=== PATIENT | male | born 1985 | race Caucasian/White ===

== ENCOUNTER 2019-11-15 13:55 | Outpatient (CLI) | payer OTHER ==
[2019-11-15] MEDS ORDERED: GADOBUTROL 10 MMOL/10 ML VIAL ONE (14:03)
== END 2019-11-15 13:56 | disposition home or self-care (01) ==
LOC: DI 13:55
PROVIDERS: ATTEND Orthopaedic Surgery
DX: Z53.9 Procedure and treatment not carried out, unspecified reason (principal)

== ENCOUNTER 2019-11-29 16:39 | Outpatient (CLI) | payer OTHER ==
[2019-11-29] MEDS ORDERED: GADOBUTROL 10 MMOL/10 ML VIAL ONE (16:50)
[2019-11-29] MEDS ORDERED: GADOBUTROL 10 MMOL/10 ML VIAL IVP ONE (17:33)
--- NOTE | 2019-11-30 10:28 | MRI Report ---
Reason: LT MASS AND LUMP, SWELLING Procedure Date: 11/29/2019 Accession Number: [id number] / [id number] Procedure: MRI - Finger(s) LT W/WO CPT Code: Final Report FULL RESULT: EXAM: LEFT HAND FIFTH DIGIT MRI WITHOUT AND WITH CONTRAST EXAM DATE: 11/29/2019 04:59 PM. CLINICAL HISTORY: Fifth finger mass for 9 months. COMPARISON: None. TECHNIQUE: Multiplanar, multisequence T1-weighted and fluid-sensitive sequences of the finger before and after administration of intravenous contrast. IV contrast: 9 mL Gadavist. Other: None. FINDINGS: Bones: No fractures or subluxations. No marrow edema or abnormal enhancement. No bone lesions. Cartilage: The articular cartilage is unremarkable. Ligaments: The radial and ulnar collateral ligaments are intact. Tendons: The flexor and extensor tendons are unremarkable. The visualized pulleys are intact. Musculature: No edema or fatty atrophy. Other: No joint effusions or capsular rupture. At the volar portion of the fifth digit at the level of the proximal interphalangeal joints towards the ulnar side, there is an oval-shaped structure within the subcutaneous fat that measures 0.4 x 0.3 x 0.6 cm. It is T1 hypointense. It has mixed signal intensity on T2-weighted imaging. There is minimal to no enhancement within the structure. The surrounding subcutaneous tissues are edematous and enhance. IMPRESSION: 6 mm mass with only mild T2 hyperintensity and minimal to no enhancement of the surrounding inflammatory reaction in the soft tissues. The differential diagnosis includes a remnant of a hematoma, fat necrosis, or a fibrous soft tissue mass. If this causes pain, biopsy could be considered for further evaluation. RADIA
== END 2019-11-29 16:40 | disposition home or self-care (01) ==
LOC: DI 16:39
PROVIDERS: ATTEND Orthopaedic Surgery
DX: R22.32 Localized swelling, mass and lump, left upper limb (principal)
CPT/HCPCS: 73220; A9585

== ENCOUNTER 2019-12-22 11:38 | Day surgery (SDC) | payer OTHER ==
[~2019-12-22 11:38] MED LIST: BUPIVACAINE 0.25% PF 30 ML VIAL ONE; CEFAZOLIN SODIUM IN 0.9 % NACL 2 GM/100 ML BAG IV ONE
[2019-12-22] MEDS ORDERED: fentaNYL 100 MCG/2 ML VIAL IVP ONE (11:39)
[2019-12-22] MEDS ORDERED: LIDOCAINE-MPF 2% 5 ML VIAL IM ONE (11:39)
[2019-12-22] MEDS ORDERED: MIDAZOLAM 2 MG/2 ML VIAL IVP ONE (11:39)
[2019-12-22] MEDS ORDERED: PROPOFOL 200 MG/20 ML VIAL IVP ONE (11:39)
--- NOTE | 2019-12-22 11:45 | ANESTHESIA ---
Pre-Anesthesia VS, & Labs - Diagnosis left small finger mass excision - Procedure left small finger excisional biopsy Height 6 ft Weight (kg) 97.52 kg - NPO >8 hours Home Medications and Allergies Home Medications: Ambulatory Orders No Known Home Medications 12/19/19 No Known Home Medications 12/19/19 Allergies/Adverse Reactions: Allergies Allergy/AdvReac Type Severity Reaction Status Date / Time No Known Drug Allergies Allergy Verified 12/19/19 15:53 Anes History & Medical History - Anesthetic History Anesthesia Complications: reports: No previous complications - Medical History Cardiovascular: reports: None Pulmonary: reports: None Gastrointestinal: reports: None Urinary: reports: None Musculoskeletal: reports: Other Skin: reports: None - Surgical History Orthopedic: Other Exam General: Alert Dental: WNL Mouth Opening: Greater than 4 Fingerbreadths Neck Mobility: Normal Mallampati classification: I Respiratory: Lungs clear Cardiovascular: Regular rate Plan Anesthesia Type: General Consent for Procedure(s) Verified and Reviewed: Yes Code Status: Attempt Resuscitation ASA classification: 1-Healthy patient Is this case an emergency?: No
[2019-12-22] MEDS ORDERED: LACTATED RINGERS 1,000 ML IV ONE (12:04)
[2019-12-22] MEDS ORDERED: BUPIVACAINE 0.25% PF 30 ML VIAL SUBQ ONE ×2 (12:32)
[2019-12-22] MEDS ORDERED: ONDANSETRON 4 MG/2 ML VIAL IVP PRN (13:34)
[2019-12-22] MEDS ORDERED: HYDROcod/ACETAM 5/325 MG TABLET PO PRN (13:38)
--- NOTE | 2019-12-22 14:00 | OPERATIVE REPORT ---
Operative Report - General Procedure Date: 12/22/19 Planned Procedure: Left small finger mass excisional biopsy Pre-Op Diagnosis: Left small finger mass Procedure Performed: Left small finger mass excisional biopsy Post Op Diagnosis: Left small finger mass - Procedure Note Primary Surgeon: OSWALD ZAMBRANO Anesthesia Provider: Immanuel Hu Anesthesia Technique: General LMA Pathology: Culture Swab sent for Aerobic/Anaerobic Tissue sent for Aerobic/AFB/Fungal Culture Tissue sent for permanent pathology Estimated Blood Loss (mL): 5 - Other Other Information/Narrative: Date of Procedure: 22 Dec 2019 Planned Procedure: Left small finger mass excisional biopsy Pre-op diagnosis: Left small finger mass Procedure performed: Left small finger mass excisional biopsy Post-op diagnosis: Left small finger mass Primary Surgeon: OSWALD ZAMBRANO Secondary Surgeon: None Anesthesia: General LMA EBL: 5 ml Tourniquet: 36 minutes, left upper arm at 250mmHg. Specimen(s) Information: Culture swab sent for aerobic and anaerobic culture, tissue sent for aerobic acid-fast and fungal culture, tissue sent for permanent pathology Complication(s): None Condition: Stable to recovery Indications for Surgery: The patient is a 34-year-old right hand dominant male with a 9 month history of a slowly enlarging left small finger mass. He does not recall inciting injury. Exam demonstrated a small approximately 4 mm x 4 mm subcutaneous mass overl moris the volar aspect/ulnar side of the left small finger proximal phalanx, near the metacarpophalangeal joint. There was a negative Tinel at the mass. Distal neurovascular exam was normal. The patient denied history of prior similar masses. Xrays were normal. MRI demonstrated a T1 hypointense well- circumscribed lesion, with some internal enhancement following administration of gadolinium. The mass was somewhat isointense to the surrounding subcutaneous tissues on proton dense imaging, with some internal areas of increased T2 signal. MRI did not provide a definitive diagnosis. Due to the fact that I could not positively identify the mass based on imaging, and that it was slowly enlarging, I recommended excisional biopsy of the mass for tissue diagnosis. Risks benefits and alternatives to this were discussed. Risks of surgery were discussed to include bleeding, infection, postoperative stiffness, mass recurrence, damage to nerves (including the possibility that this mass was arising from a digital nerves, and that excision of the mass may result in nerve injury or segmental resection), blood vessels including the digital artery which based on cross-sectional imaging appeared to be in close association with the mass, tendons, ligaments, bone and cartilage and anesthesia complications to include medication side effects and allergic reactions and even . After a long discussion, they wished to proceed. Findings: Solid mass approximately 3 mm in diameter, and approximately 6 mm proximal to distal in length. It appeared that it was arising from the fascia of the finger, and tracked back proximally into the palm towards the center of the MCPJ with a very narrow stalk. Descriptions of Procedure: The patient was met in the Preoperative Holding Area, at which time preoperative paperwork was confirmed. The left small finger was signed. The patient was then brought to Main Operating Room, placed supine on the Operating Room table, at which time pre procedure timeout was conducted to confirm correct patient, correct extremity and correct procedure and also to confirm presence and sterility of all required equipment and to confirm that antibiotics were being administered. After this was confirmed, general anesthesia was induced. The operative extremity was then prepped and draped over a hand table in the normal sterile fashion after a well-padded tourniquet was placed on the proximal arm. A final timeout was conducted to confirm the correct patient, correct extremity and correct procedure and to confirm that antibiotics had been administered within 30 minutes of incision time. The operative extremity was then gravity exsanguinated for 2 minutes and tourniquet inflated to 250mmHg. A curvilinear incision was made over the mass with a #15 blade through the skin. Dissection was further carried out with tenotomy scissors and retractors until the mass was visualized. As discussed above, the mass appeared to arise/was in continuity with the fascia of the finger, potentially Bradley's ligament. The mass was carefully dissected, removing all soft tissue attachments surrounding the mass. The distal end of the mass was sharply divided from the fascia, and then the proximal extent was circumferentially freed around what appeared to be a stalk and transected close to the level of the MCPJ joint crease. The mass was sectioned on the back tab le, with the larger portion of the mass sent for permanent pathology, and a small section of the mass sent for appropriate cultures. The cut at the cut internal structure of the mass appeared white and fairly homogenous, and was solid. Culture swabs were taken from the wound bed. The small piece of the mass for culture was passed off the back table in a sterile cup, and the larger piece of the mass was then passed off the back table in a sterile specimen cup fixed in formalin. The wound was explored, and the ulnar digital neurovascular bundle was visualized. The wound was then copiously irrigated. The tourniquet was let down. Pressure was held on the wound for approximately 5 minutes. The wound was then again explored and bleeding points were cauterized using bipolar electrocautery. Pressure was again held on the wound, and hemostasis was ensured the wound was irrigated 1 last time, and then closure began using 3-0 nylon in an interrupted horizontal mattress fashion. 7 mL of quarter percent plain Marcaine were injected in the palm at the level of the A1 alisson for postoperative pain control. The wound was dressed with xeroform, plain 4x4 gauze, fluffs, and webril followed by a gently compressive Matti bandage. The patient was then awakened from general anesthesia without complication, brought to the Post Anesthesia Care for further recovery. Immediate sensory exam the OR, prior to bupivacaine set-up confirmed sensation to the ulnar tip of the small finger. Postoperative Plan: 1. The patient will be discharged from the Same Day Surgery Unit when discharge criteria are met. 2. The patient will remain in the post-operative dressing for 5 days 3. They have been instructed to start early finger ROM and not to lift anything heavier than a cup of coffee until follow-up. 4. Expect return to full activites in 4-6 weeks. 5. We will follow-up on pathology and cultures 6. Early ambulation for DVT prophylaxis
[2019-12-22] MEDS ORDERED: HYDROcod/ACETAM 5/325 MG TABLET ONE (14:07)
[2019-12-22 15:51] VITALS: BP 115/72
== END 2019-12-22 11:39 | disposition home or self-care (01) ==
LOC: SDS 11:38
PROVIDERS: ATTEND Orthopaedic Surgery
DX: R22.32 Localized swelling, mass and lump, left upper limb (principal)
CPT/HCPCS: 81599; 87070; 87205